=== PATIENT | male | born 1970 | race Caucasian/White ===

== ENCOUNTER 2016-11-27 20:16 | Emergency (ER) | payer BC ==
[~2016-11-27] VITALS: Ht 182.9 cm; Wt 76.2 kg
--- NOTE | 2016-11-27 20:16 | NUR ---
PT PRESENTED TO THE ER WITH A C/O LT SIDED CP/PRESSURE SINCE THIS AFTERNOON. PROGRESSIVELY GETTING WORSE. PT TAKEN TO ROOM #7.
[2016-11-27] MEDS ORDERED: NITROGLYCERIN PACKET 1 GM PACKET TD ONE (20:30)
[2016-11-27] MEDS ORDERED: IV NS 0.9% 500 ML BAG IV ONE (20:30)
[2016-11-27] MEDS ORDERED: LORAZEPAM INJ 2 MG/ML VIAL IV ONE (20:30)
[2016-11-27] MEDS ORDERED: ASPIRIN 325 MG TABLET PO ONE (20:30)
[2016-11-27 20:40] LABS: BASOPHILS # (AUTO) 0.1 /CMM (0.0-0.2); EOSINOPHILS # (AUTO) 0.3 /CMM (0.0-0.7); EOSINOPHILS % (AUTO) 3.4 % (0.0-6.0); HEMATOCRIT 49 % (39-51); HEMOGLOBIN 16.7 g/dL (13.5-17.5); LYMPHOCYTES # (AUTO) 1.8 /CMM (0.8-4.8); LYMPHOCYTES % (AUTO) 23.5 % (20.0-44.0); MEAN CORPUSCULAR HEMOGLOBIN 32 PG (26.0-33.0); MEAN CORPUSCULAR HGB CONC 34 g/dl (31.0-36.0); MEAN CORPUSCULAR VOLUME 93 fL (80-96); MONOCYTES # (AUTO) 0.7 /CMM (0.1-1.30); MONOCYTES % (AUTO) 8.4 % (2.0-12.0); NEUTROPHILS # (AUTO) 4.9 /CMM (1.8-8.9); NEUTROPHILS % (AUTO) 63.7 % (43.0-81.0); PLATELET COUNT (AUTO) 223 /CMM (150-450); RDW COEFFICIENT OF VARIATION 11.7 (11.5-15.0); RED BLOOD CELL COUNT(AUTO) 5.24 MIL/uL (4.5-6.0); WHITE BLOOD COUNT (AUTO) 7.9 K/uL (4.3-11.0)
[2016-11-27] MEDS ORDERED: LORAZEPAM INJ 2 MG/ML VIAL ONE (20:42)
[2016-11-27] MEDS ORDERED: ASPIRIN 325 MG TABLET ONE (20:44)
[2016-11-27] MEDS ORDERED: IV SET PRIMARY 1 EA INFUS.SET MC ONE (20:44)
[2016-11-27] MEDS ORDERED: IV NS 0.9% 500 ML IV ONE (20:44)
[2016-11-27] MEDS ORDERED: NITROGLYCERIN PACKET 1 GM PACKET ONE (20:45)
[2016-11-27 20:50] LABS: CALCIUM, SERUM 9.4 mg/dL (8.5-10.1); CARBON DIOXIDE 26 mmol/L (21-32); CHLORIDE 102 mmol/L (98-107); CREATININE 0.9 mg/dL (0.6-1.3); GFR 90 mL/min (>60); GLUCOSE 101 mg/dL (74-106); POTASSIUM 3.5 mmol/L (3.5-5.1); SODIUM SERUM 137 mmol/L (136-145); UREA NITROGEN, BLOOD 10 mg/dL (7-18)
[2016-11-27 20:59] LABS: TROPONIN I < 0.017 ng/mL (0.00-0.056)
[2016-11-27 21:21] LABS: D-DIMER 0.19 mg/L(FEU (0.17-0.50); INR 0.98 (0.87-1.13); PROTHROMBIN TIME 10.5 SECS (9.5-12.7)
--- NOTE | 2016-11-27 22:28 | NUR ---
IV removed. Catheter intact and site benign. Pressure and 4x4 applied to site. No bleeding noted.Patient discharged to home in stable condition. Written and verbal after care instructions given. Patient verbalizes understanding of instruction AND RX. PT'S FRIEND IS DRIVING PT HOME. VSS.
[2016-11-27 23:04] VITALS: BP 153/87
== END 2016-11-27 23:00 | disposition home or self-care (01) ==
LOC: ER 20:21
DX: R07.89 Other chest pain (principal); R00.2 Palpitations; F41.9 Anxiety disorder, unspecified
CPT/HCPCS: 36415; 71010; 80048; 84484; 85025; 85378; 85730; 87081; 93005; 96374; 99285; A4606; J2060; J7040; Z7610